=== PATIENT | female | born 1965 | race American Indian/Alaskan Native ===

== ENCOUNTER 2016-11-13 13:34 | Emergency (ER) | payer SELFPAY ==
--- NOTE | 2016-11-13 19:11 | Emergency Department Report ---
- General Chief Complaint: Upper Respiratory Infection Stated Complaint: FLU LIKE SYMPTOMS Time Seen by Provider: 11/13/16 18:21 Source: patient Mode of arrival: Ambulatory Limitations: No Limitations - History of Present Illness Initial Comments: c/o cough and sinus congestion since 2 days. today c/o increasing body aches and lowe grade fever. c/o dry cough. denies any chest pain or SOB MD Complaint: cough -: Gradual Severity: moderate Severity scale (0 -10): 2 Quality: dull Consistency: constant Improves With: nothing Worsens With: deep breaths Associated Symptoms: chills, myalgias, rhinorrhea, nasal congestion, cough Treatments Prior to Arrival: none - Related Data Home Medications Medication Instructions Recorded Confirmed Last Taken Aspirin [Aspirin BABY CHEW TAB] 81 mg PO QWEEK 07/25/14 07/25/14 Unknown Previous Rx's Medication Instructions Recorded Last Taken Type Cyclobenzaprine [Flexeril 10mg] 10 mg PO TID PRN #30 tablet 07/25/14 Unknown Rx HYDROcodone/APAP 10-325 [[place] 1 each PO Q6HR PRN #20 tablet 07/25/14 Unknown Rx 10/325] Hydrochlorothiazide [HCTZ] 12.5 mg PO DAILY #60 capsule 07/25/14 Unknown Rx Ibuprofen [Motrin] 600 mg PO Q8H PRN #60 tablet 07/25/14 Unknown Rx amLODIPine [Norvasc] 5 mg PO DAILY #60 tablet 07/25/14 Unknown Rx Azithromycin [Zithromax Z-CRISTOFER] 0 mg PO DAILY #1 pack 11/13/16 Unknown Rx Cetirizine HCl [ZyrTEC] 10 mg PO DAILY #20 tab.chew 11/13/16 Unknown Rx predniSONE [Deltasone] 20 mg PO QDAY #5 tab 11/13/16 Unknown Rx Allergies Allergy/AdvReac Type Severity Reaction Status Date / Time Penicillins Allergy Swelling Verified 07/25/14 09:44 ED Review of Systems ROS: Stated complaint: FLU LIKE SYMPTOMS Other details as noted in HPI Comment: All other systems reviewed and negative Constitutional: denies: chills, fever Eyes: denies: eye pain, eye discharge, vision change ENT: congestion (sinus). denies: ear pain, throat pain Respiratory: cough. denies: shortness of breath, wheezing Cardiovascular: denies: chest pain, palpitations Endocrine: no symptoms reported Gastrointestinal: denies: abdominal pain, nausea, diarrhea Genitourinary: denies: urgency, dysuria, discharge Musculoskeletal: denies: back pain, joint swelling, arthralgia Skin: denies: rash, lesions Neurological: denies: headache, weakness, paresthesias Psychiatric: denies: anxiety, depression Hematological/Lymphatic: denies: easy bleeding, easy bruising ED Past Medical Hx - Past Medical History Hx Hypertension: Yes - Surgical History Hx Cholecystectomy: Yes Additional Surgical History: C section - Social History Smoking Status: Current Some Day Smoker Substance Use Type: None - Medications Home Medications: Home Medications Medication Instructions Recorded Confirmed Last Taken Type Aspirin [Aspirin BABY CHEW TAB] 81 mg PO QWEEK 07/25/14 07/25/14 Unknown History Cyclobenzaprine [Flexeril 10mg] 10 mg PO TID PRN #30 tablet 07/25/14 Unknown Rx HYDROcodone/APAP 10-325 [[place] 1 each PO Q6HR PRN #20 tablet 07/25/14 Unknown Rx 10/325] Hydrochlorothiazide [HCTZ] 12.5 mg PO DAILY #60 capsule 07/25/14 Unknown Rx Ibuprofen [Motrin] 600 mg PO Q8H PRN #60 tablet 07/25/14 Unknown Rx amLODIPine [Norvasc] 5 mg PO DAILY #60 tablet 07/25/14 Unknown Rx Azithromycin [Zithromax Z-CRISTOFER] 0 mg PO DAILY #1 pack 11/13/16 Unknown Rx Cetirizine HCl [ZyrTEC] 10 mg PO DAILY #20 tab.chew 11/13/16 Unknown Rx predniSONE [Deltasone] 20 mg PO QDAY #5 tab 11/13/16 Unknown Rx ED Physical Exam - General Limitations: No Limitations General appearance: alert, in no apparent distress - Head Head exam: Present: atraumatic, normocephalic, other (bilateral frontal sinus tenderness) - Eye Eye exam: Present: normal appearance - ENT ENT exam: Present: mucous membranes moist, other (pharyngeal erythema) - Neck Neck exam: Present: normal inspection - Respiratory Respiratory exam: Present: normal lung sounds bilaterally. Absent: respiratory distress, wheezes, rales, rhonchi - Cardiovascular Cardiovascular Exam: Present: regular rate, normal rhythm. Absent: systolic murmur, diastolic murmur, rubs, gallop - GI/Abdominal GI/Abdominal exam: Present: soft, normal bowel sounds - Extremities Exam Extremities exam: Present: normal inspection - Back Exam Back exam: Present: normal inspection - Neurological Exam Neurological exam: Present: alert, oriented X3 - Psychiatric Psychiatric exam: Present: normal affect, normal mood - Skin Skin exam: Present: warm, dry, intact, normal color. Absent: rash ED Course Vital Signs 11/13/16 14:24 Temperature 98 F Pulse Rate 92 H Respiratory 20 Rate Blood Pressure 160/97 O2 Sat by Pulse 98 Oximetry Critical care attestation.: If time is entered above; I have spent that time in minutes in the direct care of this critically ill patient, excluding procedure time. ED Disposition Clinical Impression: Acute frontal sinusitis Qualifiers: Recurrence: non-recurrent Qualified Code(s): J01.10 - Acute frontal sinusitis, unspecified Acute bronchitis Qualifiers: Bronchitis organism: unspecified organism Qualified Code(s): J20.9 - Acute bronchitis, unspecified Disposition: DISCHARGED TO HOME OR SELFCARE Is pt being admited?: No Does the pt Need Aspirin: No Condition: Good Instructions: Sinusitis (ED), Acute Bronchitis (ED) Prescriptions: Azithromycin [Zithromax Z-CRISTOFER] 0 mg PO DAILY #1 pack Cetirizine HCl [ZyrTEC] 10 mg PO DAILY #20 tab.chew predniSONE [Deltasone] 20 mg PO QDAY #5 tab Referrals: PRIMARY CARE, [Primary Care Provider] - 3-5 Days Forms: Work/School Release Form(ED)
[2016-11-13 20:58] VITALS: BP 156/88
== END 2016-11-13 19:30 | disposition home or self-care (01) ==
LOC: ED 13:34
DX: J01.10 Acute frontal sinusitis, unspecified (principal); J20.9 Acute bronchitis, unspecified; I10 Essential (primary) hypertension; F17.200 Nicotine dependence, unspecified, uncomplicated
CPT/HCPCS: 87400; 99282

== ENCOUNTER 2017-03-28 09:01 | Emergency (ER) | payer SELFPAY ==
[2017-03-28 09:47] LABS: Basophils % (Auto) 0.4 % (0.0-1.8); Eosinophils % (Auto) 2.9 % (0.0-4.3); Hematocrit 34.9 % (30.3-42.9); Hemoglobin 10.8 gm/dl (10.1-14.3); Mean Corpuscular HGB Conc 31 % (30-34); Platelet Count 208 K/mm3 (140-440); Red Blood Count 5.59 M/mm3 (3.65-5.03); Red Cell Distribution Width 19.7 % (13.2-15.2)
[2017-03-28 09:51] LABS: Mean Corpuscular Hemoglobin 19 pg (28-32); Mean Corpuscular Volume 62 fl (79-97)
[2017-03-28 10:00] LABS: Anion Gap 17 mmol/L; BUN/Creatinine Ratio 11.11; Blood Urea Nitrogen 10 mg/dL (7-17); Calcium 8.7 mg/dL (8.4-10.2); Carbon Dioxide 24 mmol/L (22-30); Chloride 106.3 mmol/L (98-107); Glucose 86 mg/dL (65-100); Potassium 3.8 mmol/L (3.6-5.0); Sodium 143 mmol/L (137-145)
--- NOTE | 2017-03-28 10:27 | XRay Report ---
Chest 2 views: History: Shortness of breath. Findings: Normal cardiomediastinal silhouette. Trachea is midline. No consolidation, pneumothorax or pleural effusion. Impression: No acute cardiopulmonary findings.
--- NOTE | 2017-03-28 12:17 | Emergency Department Report ---
ED Chest Pain HPI - General Chief Complaint: Dyspnea/Respdistress Stated Complaint: RADIATING PAIN Time Seen by Provider: 03/28/17 11:48 Source: patient Mode of arrival: Ambulatory Limitations: No Limitations - History of Present Illness Initial Comments: patient stated that she will have episodes of left sided chest pain that continue for seconds and it go away. patient stated that she is doing a lot of lifting at work. Complaint: chest pain -: Gradual, week(s) Onset: during exertion Pain Location: left chest Pain Radiation: none Severity scale (0 -10): 5 Quality: squeezing Improves With: nothing Worsens With: exertion, inspiration re: denies: nausea Other Symptoms: denies: fever, rash - Related Data Home Medications Medication Instructions Recorded Confirmed Last Taken Aspirin [Aspirin BABY CHEW TAB] 81 mg PO QWEEK 07/25/14 07/25/14 Unknown Previous Rx's Medication Instructions Recorded Last Taken Type Cyclobenzaprine [Flexeril 10mg] 10 mg PO TID PRN #30 tablet 07/25/14 Unknown Rx HYDROcodone/APAP 10-325 [[place] 1 each PO Q6HR PRN #20 tablet 07/25/14 Unknown Rx 10/325] Hydrochlorothiazide [HCTZ] 12.5 mg PO DAILY #60 capsule 07/25/14 Unknown Rx Ibuprofen [Motrin] 600 mg PO Q8H PRN #60 tablet 07/25/14 Unknown Rx amLODIPine [Norvasc] 5 mg PO DAILY #60 tablet 07/25/14 Unknown Rx Azithromycin [Zithromax Z-CRISTOFER] 0 mg PO DAILY #1 pack 11/13/16 Unknown Rx Cetirizine HCl [ZyrTEC] 10 mg PO DAILY #20 tab.chew 11/13/16 Unknown Rx predniSONE [Deltasone] 20 mg PO QDAY #5 tab 11/13/16 Unknown Rx Furosemide [Lasix] 20 mg PO QDAY #10 tablet 03/28/17 Unknown Rx traMADol [Ultram] 50 mg PO Q6HR PRN #14 tablet 03/28/17 Unknown Rx Allergies Allergy/AdvReac Type Severity Reaction Status Date / Time Penicillins Allergy Swelling Verified 03/28/17 09:06 Heart Score - HEART Score History: Moderately suspicious EKG: Non-specific Age: 45-65 Risk factors: 1-2 risk factors Troponin: < normal limit HEART Score: 4 - Critical Actions Critical Actions: 4-6 pts:12-16.6% risk of adverse cardiac event. Should be admitted ED Review of Systems ROS: Stated complaint: RADIATING PAIN Other details as noted in HPI Comment: All other systems reviewed and negative Constitutional: denies: chills, fever Respiratory: cough, SOB with exertion. denies: SOB at rest, wheezing Cardiovascular: chest pain, dyspnea on exertion, edema. denies: palpitations Gastrointestinal: denies: abdominal pain, nausea Neurological: denies: headache ED Past Medical Hx - Past Medical History Hx Hypertension: Yes Hx Diabetes: Yes (BORDERLINE) - Surgical History Hx Cholecystectomy: Yes Additional Surgical History: C section. CYST REMOVED LEFT HAND - Social History Smoking Status: Former Smoker Substance Use Type: Prescribed - Medications Home Medications: Home Medications Medication Instructions Recorded Confirmed Last Taken Type Aspirin [Aspirin BABY CHEW TAB] 81 mg PO QWEEK 07/25/14 07/25/14 Unknown History Cyclobenzaprine [Flexeril 10mg] 10 mg PO TID PRN #30 tablet 07/25/14 Unknown Rx HYDROcodone/APAP 10-325 [[place] 1 each PO Q6HR PRN #20 tablet 07/25/14 Unknown Rx 10/325] Hydrochlorothiazide [HCTZ] 12.5 mg PO DAILY #60 capsule 07/25/14 Unknown Rx Ibuprofen [Motrin] 600 mg PO Q8H PRN #60 tablet 07/25/14 Unknown Rx amLODIPine [Norvasc] 5 mg PO DAILY #60 tablet 07/25/14 Unknown Rx Azithromycin [Zithromax Z-CRISTOFER] 0 mg PO DAILY #1 pack 11/13/16 Unknown Rx Cetirizine HCl [ZyrTEC] 10 mg PO DAILY #20 tab.chew 11/13/16 Unknown Rx predniSONE [Deltasone] 20 mg PO QDAY #5 tab 11/13/16 Unknown Rx Furosemide [Lasix] 20 mg PO QDAY #10 tablet 03/28/17 Unknown Rx traMADol [Ultram] 50 mg PO Q6HR PRN #14 tablet 03/28/17 Unknown Rx ED Physical Exam - General Limitations: No Limitations General appearance: alert - Head Head exam: Present: atraumatic - Neck Neck exam: Present: normal inspection, full ROM - Respiratory Respiratory exam: Present: normal lung sounds bilaterally, chest wall tenderness (LEFT UPPER CHEST). Absent: respiratory distress, wheezes, rales, rhonchi - Cardiovascular Cardiovascular Exam: Present: regular rate, normal heart sounds - GI/Abdominal GI/Abdominal exam: Present: soft. Absent: distended - Extremities Exam Extremities exam: Present: pedal edema - Neurological Exam Neurological exam: Present: alert, oriented X3, CN II-XII intact ED Course Vital Signs 03/28/17 03/28/17 09:07 11:44 Temperature 98.5 F Pulse Rate 82 71 Respiratory 19 19 Rate Blood Pressure 142/80 Blood Pressure 136/68 [Right] O2 Sat by Pulse 100 100 Oximetry - Reevaluation(s) Reevaluation #1: 03/28/17 12:17 PATIENT STATED THAT SHE DOESN'T HAVE ANY PAIN SINCE SHE GOT TO THE ER . PAIN ONLY HAPPENED AT WORK. ED Medical Decision Making - Lab Data Result diagrams: 03/28/17 09:34 03/28/17 09:31 Critical care attestation.: If time is entered above; I have spent that time in minutes in the direct care of this critically ill patient, excluding procedure time. ED Disposition Clinical Impression: Chest pain, atypical, Costochondritis Disposition: DC-01 TO HOME OR SELFCARE Is pt being admited?: No Does the pt Need Aspirin: No Condition: Stable Instructions: Chest Pain (ED) Prescriptions: Furosemide [Lasix] 20 mg PO QDAY #10 tablet traMADol [Ultram] 50 mg PO Q6HR PRN #14 tablet PRN Reason: Pain Forms: Work/School Release Form(ED)
[2017-03-28 12:28] VITALS: BP 152/79
== END 2017-03-28 12:30 | disposition home or self-care (01) ==
LOC: ED 09:01
DX: M94.0 Chondrocostal junction syndrome [Tietze] (principal); R07.89 Other chest pain; I10 Essential (primary) hypertension; E11.9 Type 2 diabetes mellitus without complications; Z87.891 Personal history of nicotine dependence; Z79.82 Long term (current) use of aspirin; Z88.0 Allergy status to penicillin
CPT/HCPCS: 36415; 71020; 80048; 83880; 84484; 85025; 93005; 93010

== ENCOUNTER 2017-07-14 14:50 | Emergency (ER) | payer SELFPAY ==
[2017-07-14 16:17] VITALS: BP 144/83
[2017-07-14] MEDS ORDERED: BOOSTRIX IM ONE (18:53)
[2017-07-14] MEDS ORDERED: MOTRIN PO ONE (18:54)
[2017-07-14] MEDS ORDERED: CLEOCIN PO ONE (18:54)
[2017-07-14] MEDS ORDERED: TRIPLE ANTIBIOTIC TP ONE (18:54)
--- NOTE | 2017-07-14 19:18 | Emergency Department Report ---
ED General Adult HPI - General Chief complaint: Skin/Abscess/Foreign Body Stated complaint: BOIL UNDEER RIGHT ARM Time Seen by Provider: 07/14/17 18:39 Source: patient Mode of arrival: Ambulatory Limitations: No Limitations - History of Present Illness Initial comments: PT c/o bump to R axilla x 4 days. PT states the bump is getting bigger and she has to put a dressing on because it has been draining. PT states she felt feverish yesterday and her mother gave her some Motrin. PT states she also has a sore throat. PT states she is about to be out of her bp medication and metformin. MD Complaint: boil -: Gradual Location: right, upper extremity Radiation: non-radiation Severity scale (0 -10): 8 Quality: sharp Consistency: constant Worsens with: movement Associated Symptoms: fever/chills. denies: loss of appetite, nausea/vomiting Treatments Prior to Arrival: none, NSAID (yesterday ) - Related Data Home Medications Medication Instructions Recorded Confirmed Last Taken Aspirin [Aspirin BABY CHEW TAB] 81 mg PO QWEEK 07/25/14 07/25/14 Unknown Previous Rx's Medication Instructions Recorded Last Taken Type Ibuprofen [Motrin] 600 mg PO Q8H PRN #60 tablet 07/25/14 Unknown Rx Furosemide [Lasix] 20 mg PO QDAY #10 tablet 03/28/17 Unknown Rx Acetaminophen/Codeine [Tylenol #3] 1 tab PO Q6H PRN #8 tab 07/14/17 Unknown Rx Clindamycin [Clindamycin CAP] 300 mg PO Q8H #30 cap 07/14/17 Unknown Rx Hydrochlorothiazide [HCTZ] 12.5 mg PO DAILY #60 capsule 07/14/17 Unknown Rx amLODIPine [Norvasc] 5 mg PO DAILY #60 tablet 07/14/17 Unknown Rx metFORMIN [Glucophage] 500 mg PO QDAY #30 tab 07/14/17 Unknown Rx Allergies Allergy/AdvReac Type Severity Reaction Status Date / Time Penicillins Allergy Swelling Verified 03/28/17 09:06 ED Review of Systems ROS: Stated complaint: BOIL UNDEER RIGHT ARM Other details as noted in HPI Comment: All other systems reviewed and negative Constitutional: fever (subjective ) ENT: throat pain (sore throat ) Respiratory: denies: cough Gastrointestinal: denies: abdominal pain, nausea, vomiting Musculoskeletal: denies: back pain Skin: other (wound under R arm ) Neurological: denies: weakness ED Past Medical Hx - Past Medical History Previous Medical History?: Yes Hx Hypertension: Yes Hx Diabetes: Yes (BORDERLINE) - Surgical History Past Surgical History?: Yes Hx Cholecystectomy: Yes Additional Surgical History: C section. CYST REMOVED LEFT HAND - Social History Smoking Status: Current Some Day Smoker Substance Use Type: Prescribed - Medications Home Medications: Home Medications Medication Instructions Recorded Confirmed Last Taken Type Aspirin [Aspirin BABY CHEW TAB] 81 mg PO QWEEK 07/25/14 07/25/14 Unknown History Ibuprofen [Motrin] 600 mg PO Q8H PRN #60 tablet 07/25/14 Unknown Rx Furosemide [Lasix] 20 mg PO QDAY #10 tablet 03/28/17 Unknown Rx Acetaminophen/Codeine [Tylenol #3] 1 tab PO Q6H PRN #8 tab 07/14/17 Unknown Rx Clindamycin [Clindamycin CAP] 300 mg PO Q8H #30 cap 07/14/17 Unknown Rx Hydrochlorothiazide [HCTZ] 12.5 mg PO DAILY #60 capsule 07/14/17 Unknown Rx amLODIPine [Norvasc] 5 mg PO DAILY #60 tablet 07/14/17 Unknown Rx metFORMIN [Glucophage] 500 mg PO QDAY #30 tab 07/14/17 Unknown Rx ED Physical Exam - General Limitations: No Limitations General appearance: alert, in no apparent distress, obese - Head Head exam: Present: atraumatic, normocephalic, normal inspection - Eye Eye exam: Present: normal appearance. Absent: conjunctival injection, nystagmus - ENT ENT exam: Present: normal exam, normal orophraynx, mucous membranes moist, TM's normal bilaterally, normal external ear exam - Expanded ENT Exam Expanded Mouth exam: Absent: drooling, trismus Teeth exam: Present: dental caries. Absent: gingival enlargement Throat exam: Positive: normal inspection. Negative: tonsillar erythema, tonsillomegaly, tonsillar exudate, R peritonsillar mass, L peritonsillar mass - Neck Neck exam: Present: normal inspection, full ROM. Absent: tenderness, lymphadenopathy - Respiratory Respiratory exam: Present: normal lung sounds bilaterally. Absent: respiratory distress, wheezes, rales, rhonchi, stridor, chest wall tenderness - Cardiovascular Cardiovascular Exam: Present: regular rate, normal rhythm, normal heart sounds - GI/Abdominal GI/Abdominal exam: Present: soft. Absent: tenderness - Extremities Exam Extremities exam: Present: full ROM, tenderness, other (R axilla with 2 cm draining abscess, no surrounding cellulitis noted ) - Back Exam Back exam: Present: normal inspection, full ROM. Absent: tenderness, CVA tenderness (R), CVA tenderness (L) - Neurological Exam Neurological exam: Present: alert, oriented X3, normal gait - Expanded Neurological Exam Expanded Patient oriented to: Present: person, place, time Speech: Present: fluid speech Best Eye Response ([place]): (4) open spontaneously Best Motor Response ([place]): (6) obeys commands Best Verbal Response ([place]): (5) oriented [place] Total: 15 - Psychiatric Psychiatric exam: Present: normal affect, normal mood - Skin Skin exam: Present: warm, dry, other (abscess ) ED Course Vital Signs 07/14/17 16:13 Temperature 98.3 F Pulse Rate 73 Respiratory 18 Rate Blood Pressure 144/83 O2 Sat by Pulse 100 Oximetry - Reevaluation(s) Reevaluation #1: 07/14/17 19:33 Abscess spontaneously drained. No I and D performed in ED. PT given home care instructions and strict return precautions. PT verbalizes understanding - Pulse Oximetry Interpretation Digit-Finger Initial Pulse Oximetry Readin Actions Taken: none ED Medical Decision Making - Differential Diagnosis pharyngitis, abscess, cellulitis Critical Care Time: No Critical care attestation.: If time is entered above; I have spent that time in minutes in the direct care of this critically ill patient, excluding procedure time. ED Disposition Clinical Impression: Abscess, Need for Tdap vaccination HTN (hypertension) Qualifiers: Hypertension type: essential hypertension Qualified Code(s): I10 - Essential ( primary) hypertension Pharyngitis Qualifiers: Pharyngitis/tonsillitis etiology: unspecified etiology Qualified Code(s): J02.9 - Acute pharyngitis, unspecified Disposition: - TO HOME OR SELFCARE Is pt being admited?: No Does the pt Need Aspirin: No Condition: Stable Instructions: Hypertension (ED), Abscess (ED) Additional Instructions: Warm compresses to R axilla at least four times a day apply a think layer of antibiotic ointment Return in two days for wound recheck Return to the ED sooner if you develop fevers, nausea, vomiting, increase in under arm swelling or concerns Do not drive or drink alcohol after taking Tylenol #3 Prescriptions: Acetaminophen/Codeine [Tylenol #3] 1 tab PO Q6H PRN #8 tab PRN Reason: Pain , Severe (7-10) amLODIPine [Norvasc] 5 mg PO DAILY #60 tablet Clindamycin [Clindamycin CAP] 300 mg PO Q8H #30 cap Hydrochlorothiazide [HCTZ] 12.5 mg PO DAILY #60 capsule metFORMIN [Glucophage] 500 mg PO QDAY #30 tab Referrals: PRIMARY CARE, [Primary Care Provider] - 3-5 Days Time of Disposition: 19:41
== END 2017-07-14 20:32 | disposition home or self-care (01) ==
LOC: ED 14:50
DX: L02.411 Cutaneous abscess of right axilla (principal); I10 Essential (primary) hypertension; J02.9 Acute pharyngitis, unspecified; E11.9 Type 2 diabetes mellitus without complications; F17.210 Nicotine dependence, cigarettes, uncomplicated; Z88.0 Allergy status to penicillin; Z79.82 Long term (current) use of aspirin
CPT/HCPCS: 82962; 90471; 90715; 99283; A6250

== ENCOUNTER 2019-07-17 09:00 | Outpatient (CLI) | payer MEDICAID, OTHER ==
[2019-07-17 12:16] LABS: Basophils % (Auto) 0.5 % (0.0-1.8); Eosinophils # (Auto) 0.2 K/mm3 (0.0-0.4); Hemoglobin 11.3 gm/dl (10.1-14.3); Lymphocytes # (Auto) 2.1 K/mm3 (1.2-5.4); Lymphocytes % (Auto) 27.3 % (13.4-35.0); Mean Corpuscular HGB Conc 31 % (30-34); Monocytes # (Auto) 0.5 K/mm3 (0.0-0.8); Monocytes % (Auto) 5.8 % (0.0-7.3); Platelet Count 243 K/mm3 (140-440); Red Blood Count 5.48 M/mm3 (3.65-5.03); Red Cell Distribution Width 18.5 % (13.2-15.2)
[2019-07-17 12:17] LABS: Mean Corpuscular Volume 66 fl (79-97)
[2019-07-17 12:41] LABS: Alanine Aminotransferase 12 units/L (7-56); Albumin 4.3 g/dL (3.9-5); BUN/Creatinine Ratio 16; Blood Urea Nitrogen 13 mg/dL (7-17); Calcium 9.5 mg/dL (8.4-10.2); Chol/HDL Ratio 3.03 %; HDL Cholesterol 57 mg/dL (40-59); Hemolysis Index 4; LDL Cholesterol,Direct 109 mg/dL (50-130)
[2019-07-21 11:23] LABS: Vitamin D, 25-OH, D2 <4 ng/mL
== END 2019-07-17 09:01 | disposition home or self-care (01) ==
LOC: LAB 09:00
PROVIDERS: ATTEND Internal Medicine
DX: Z13.220 Encounter for screening for lipoid disorders (principal); Z13.29 Encounter for screening for other suspected endocrine disorder; Z00.01 Encounter for general adult medical examination with abnormal findings; E11.65 Type 2 diabetes mellitus with hyperglycemia; E78.5 Hyperlipidemia, unspecified; I10 Essential (primary) hypertension; Z90.49 Acquired absence of other specified parts of digestive tract; F17.200 Nicotine dependence, unspecified, uncomplicated
CPT/HCPCS: 36415; 80053; 80061; 82306; 82607; 83036; 84443; 85025

== ENCOUNTER 2019-12-01 18:43 | Emergency (ER) | payer MEDICAID ==
--- NOTE | 2019-12-01 22:03 | Emergency Department Report ---
HPI - General Chief Complaint: Fever Time Seen by Provider: 12/01/19 22:02 - HPI HPI: This is a 54 female came to the emergency room report fever chills coughing x3 days. She says she took Tylenol at 4 PM. She denies any chest pain but reports some shortness of breath with coughing. Denies any diarrhea, nausea or vomiting. Denies any nasal congestion or runny nose. Patient has a history of hypertension and diabetes. Generalized aching at 4 out of 10. Pain is constant. Denies being around anyone with similar symptoms. Patient reports that she has been at home and no known exposure to coronavirus. ED Past Medical Hx - Past Medical History Previous Medical History?: Yes Hx Hypertension: Yes Hx Diabetes: Yes (BORDERLINE) - Surgical History Past Surgical History?: Yes Hx Cholecystectomy: Yes Additional Surgical History: C section. CYST REMOVED LEFT HAND - Family History Family history: hypertension - Social History Smoking Status: Current Some Day Smoker Substance Use Type: Prescribed - Medications Home Medications: Home Medications Medication Instructions Recorded Confirmed Last Taken Type Aspirin [Aspirin BABY CHEW TAB] 81 mg PO QWEEK 07/25/14 07/25/14 Unknown History Ibuprofen [Motrin] 600 mg PO Q8H PRN #60 tablet 07/25/14 Unknown Rx Furosemide [Lasix] 20 mg PO QDAY #10 tablet 03/28/17 Unknown Rx Acetaminophen/Codeine [Tylenol #3] 1 tab PO Q6H PRN #8 tab 07/14/17 Unknown Rx Clindamycin [Clindamycin CAP] 300 mg PO Q8H #30 cap 07/14/17 Unknown Rx amLODIPine 5 mg PO DAILY #60 tablet 07/14/17 Unknown Rx hydroCHLOROthiazide [HCTZ] 12.5 mg PO DAILY #60 capsule 07/14/17 Unknown Rx metFORMIN [Glucophage] 500 mg PO QDAY #30 tab 07/14/17 Unknown Rx Acetaminophen [Acetaminophen TAB] 500 mg PO Q6HR PRN #12 tablet 12/02/19 Unknown Rx Albuterol INH(or & Nicu Only) 2 puff IH Q6H PRN #1 inhalation 12/02/19 Unknown Rx [ProAir HFA Inhaler] Azithromycin [Zithromax Z-DONTA] 250 mg PO DAILY 5 Days #1 pkg 12/02/19 Unknown Rx Cetirizine HCl [ZyrTEC] 10 mg PO QAM 14 Days #14 capsule 12/02/19 Unknown Rx ED Review of Systems ROS: Stated complaint: FEVER/CHILLS/COUGHING Other details as noted in HPI Constitutional: chills, fever Eyes: denies: eye discharge ENT: denies: ear pain, throat pain, congestion Respiratory: cough, shortness of breath, SOB with exertion. denies: SOB at rest, stridor, wheezing Cardiovascular: denies: chest pain, palpitations, edema, syncope Gastrointestinal: denies: abdominal pain, nausea, vomiting Genitourinary: denies: dysuria, hematuria Musculoskeletal: myalgia. denies: back pain, joint swelling, arthralgia Skin: denies: rash Neurological: denies: headache, numbness, paresthesias, confusion, abnormal gait, vertigo Physical Exam - Physical Exam Vital Signs: Vital Signs 12/01/19 19:29 Temperature 100.6 F H Pulse Rate 89 Respiratory 20 Rate Blood Pressure 134/76 O2 Sat by Pulse 98 Oximetry Vital Signs 12/01/19 12/01/19 12/02/19 19:29 23:00 01:10 Temperature 100.6 F H 98.6 F Pulse Rate 89 85 Respiratory 20 20 18 Rate Blood Pressure 134/76 154/82 O2 Sat by Pulse 98 98 Oximetry General: This is a 54-year-old female well-nourished well-developed in no acute distress. She is nontoxic in appearance Physical Exam: Head: Normocephalic atraumatic Ears:BIateral TM congested without erythema and loss of bony landmarks. Marlon EAC with normal exam. No mastoid bone tenderness. Mouth: Moist, no pharyngeal erythema or exudate . UVULA midline and oral airways patent. No peritonsillar abscess Neck: Nontender to palpate, supple, normal range of motion. No adenopathy. No c- spine tenderness. Nose: Bilateral nasal mucosa congested with clear drainage. Maxillary and frontal sinuses non-tender to palpate. Eyes: Bilateral Sclerae and conjunctiva without injection. Bilateral pupils equal and reactive to light. Bilateral lids are normal. Normal accommodation.BEOMI Lungs: Clear to auscultate bilaterally, no rhonchi wheezes or rales. Normal work of breathing and no chest wall tenderness. Dry cough CV: S1, S2. Regular rate and rhythm negative murmur. Capillary refill is less than 3 seconds Abdomen: Nontender to palpation in all quadrants: No guarding or rebound tenderness. Positive bowel sounds in all quadrants Extremity: No clubbing, cyanosis or edema. +2 pulses in all extremities and no neurovascular compromise Skin: Clean dry and intact, no rashes or lesions Psych: Normal mood and behavior ED Course Vital Signs 12/01/19 19:29 Temperature 100.6 F H Pulse Rate 89 Respiratory 20 Rate Blood Pressure 134/76 O2 Sat by Pulse 98 Oximetry Vital Signs 12/01/19 12/01/19 12/02/19 19:29 23:00 01:10 Temperature 100.6 F H 98.6 F Pulse Rate 89 85 Respiratory 20 20 18 Rate Blood Pressure 134/76 154/82 O2 Sat by Pulse 98 98 Oximetry - Reevaluation(s) Reevaluation #1: 12/02/19 01:05 Patient is stable. She received Tylenol 975 mg for low-grade temp of 100.6. Chest x-ray shows pneumonia. She is stable in no acute distress. Patient also received DuoNeb x2 nebulizer treatment and she says she is feeling a lot better. Nontoxic in appearance. Patient is suspect coven Reevaluation #2: 12/02/19 01:36 Patient stable in no acute distress. She received Zithromax 500 mg p.o. in emergency room. Her vital signs are stable and she is afebrile. Blood sugar and chemistry is 123. Patient is a diabetic and she is on metformin once a day. She does have a primary care physician to follow-up with. PUI form filled out and sent to health department and scanned in on patient's chart. Patient edu cated on [facility] id. She reports she is feeling better at present ED Medical Decision Making - Lab Data Result diagrams: 12/02/19 00:03 12/02/19 00:03 Lab Results 12/01/19 12/02/19 12/02/19 Range/Units 23:55 00:03 00:03 WBC 7.5 (4.5-11.0) K/mm3 RBC 5.53 H (3.65-5.03) M/mm3 Hgb 11.1 (10.1-14.3) gm/dl Hct 35.4 (30.3-42.9) % MCV 64 L (79-97) fl MCH 20 L (28-32) pg MCHC 32 (30-34) % RDW 19.0 H (13.2-15.2) % Plt Count 223 (140-440) K/mm3 Lymph % (Auto) 18.6 (13.4-35.0) % [place] % (Auto) 6.8 (0.0-7.3) % Eos % (Auto) 0.4 (0.0-4.3) % Baso % (Auto) 0.5 (0.0-1.8) % Lymph # 1.4 (1.2-5.4) K/mm3 [place] # 0.5 (0.0-0.8) K/mm3 Eos # 0.0 (0.0-0.4) K/mm3 Baso # 0.0 (0.0-0.1) K/mm3 Seg Neutrophils % 73.7 H (40.0-70.0) % Seg Neutrophils # 5.5 (1.8-7.7) K/mm3 Sodium 142 (137-145) mmol/L Potassium 3.8 (3.6-5.0) mmol/L Chloride 104.3 (98-107) mmol/L Carbon Dioxide 26 (22-30) mmol/L Anion Gap 16 mmol/L BUN 9 (7-17) mg/dL Creatinine 1.0 (0.7-1.2) mg/dL Estimated GFR > 60 ml/min BUN/Creatinine Ratio 9 % Glucose 123 H (65-100) mg/dL Calcium 8.6 (8.4-10.2) mg/dL Total Bilirubin < 0.20 (0.1-1.2) mg/dL AST 13 (5-40) units/L ALT 13 (7-56) units/L Alkaline Phosphatase 86 (35-129) units/L Total Protein 6.2 L (6.3-8.2) g/dL Albumin 4.0 (3.9-5) g/dL Albumin/Globulin Ratio 1.8 % Urine Color (Yellow) Urine Turbidity (Clear) Urine pH (5.0-7.0) Ur Specific [place] (1.003-1.030) Urine Protein (Negative) mg/dL Urine Glucose (UA) (Negative) mg/dL Urine Ketones (Negative) mg/dL Urine Blood (Negative) Urine Nitrite (Negative) Urine Bilirubin (Negative) Urine Urobilinogen (<2.0) mg/dL Ur Leukocyte Esterase (Negative) Urine WBC (Auto) (0.0-6.0) /HPF Urine RBC (Auto) (0.0-6.0) /HPF U Epithel Cells (Auto) (0-13.0) /HPF Influenza A (Rapid) Negative (Negative) Influenza B (Rapid) Negative (Negative) 12/02/19 Range/Units 00:25 WBC (4.5-11.0) K/mm3 RBC (3.65-5.03) M/mm3 Hgb (10.1-14.3) gm/dl Hct (30.3-42.9) % MCV (79-97) fl MCH (28-32) pg MCHC (30-34) % RDW (13.2-15.2) % Plt Count (140-440) K/mm3 Lymph % (Auto) (13.4-35.0) % [place] % (Auto) (0.0-7.3) % Eos % (Auto) (0.0-4.3) % Baso % (Auto) (0.0-1.8) % Lymph # (1.2-5.4) K/mm3 [place] # (0.0-0.8) K/mm3 Eos # (0.0-0.4) K/mm3 Baso # (0.0-0.1) K/mm3 Seg Neutrophils % (40.0-70.0) % Seg Neutrophils # (1.8-7.7) K/mm3 Sodium (137-145) mmol/L Potassium (3.6-5.0) mmol/L Chloride (98-107) mmol/L Carbon Dioxide (22-30) mmol/L Anion Gap mmol/L BUN (7-17) mg/dL Creatinine (0.7-1.2) mg/dL Estimated GFR ml/min BUN/Creatinine Ratio % Glucose (65-100) mg/dL Calcium (8.4-10.2) mg/dL Total Bilirubin (0.1-1.2) mg/dL AST (5-40) units/L ALT (7-56) units/L Alkaline Phosphatase (35-129) units/L Total Protein (6.3-8.2) g/dL Albumin (3.9-5) g/dL Albumin/Globulin Ratio % Urine Color Yellow (Yellow) Urine Turbidity Clear (Clear) Urine pH 6.0 (5.0-7.0) Ur Specific [place] 1.014 (1.003-1.030) Urine Protein <15 mg/dl (Negative) mg/dL Urine Glucose (UA) Neg (Negative) mg/dL Urine Ketones Neg (Negative) mg/dL Urine Blood Neg (Negative) Urine Nitrite Neg (Negative) Urine Bilirubin Neg (Negative) Urine Urobilinogen < 2.0 (<2.0) mg/dL Ur Leukocyte Esterase Neg (Negative) Urine WBC (Auto) < 1.0 (0.0-6.0) /HPF Urine RBC (Auto) < 1.0 (0.0-6.0) /HPF U Epithel Cells (Auto) 2.0 (0-13.0) /HPF Influenza A (Rapid) (Negative) Influenza B (Rapid) (Negative) - Radiology Data Radiology results: report reviewed Chest x-ray two-view dictated by radiologist and report reviewed by myself. Please see below for details Print Report Referring Physician:KOBI HARRISPatient Name:SUGEY PARRAPatient ID:[id number] of :[id number]:FemaleAccession:[id number] Date:2949-93-91Foltbn Status:Finalized Findings [facility] [address] [place] [address] XRay Report Signed Patient: SUGEY PARRA MR#: [id number] : 1965 Acct:[id number] Age/Sex: 54 / F ADM Date: 12/01/19 Loc: ED Attending Dr: Ordering Physician: WANDA ALONSO Date of Service: 12/01/19 Procedure(s): XR chest routine 2V Accession Number(s): [id number] cc: WANDA ALONSO Fluoro Time In Minutes: CHEST 2 VIEWS INDICATION / CLINICAL INFORMATION: Fever, chills and cough for 3 days. COMPARISON: 03/28/17. FINDINGS: SUPPORT DEVICES: None. HEART / MEDIASTINUM: The heart size and pulmonary vasculature are normal. LUNGS / PLEURA: There is minimal groundglass opacity in the left mid lung laterally on the PA view. The lungs are otherwise clear. There is no evidence of effusion or adenopathy. No pneumothorax. ADDITIONAL FINDINGS: No significant additional findings. IMPRESSION: Minimal groundglass opacity in the left mid lung laterally is likely inflammatory. Atypical causes of pneumonia, including viral pneumonia can have this appearance. Signer Name: Buck Quiñones MD Signed: 12/01/2019 10:54 PM Workstation Name: [id number] Transcribed By: RT Dictated By: Buck Quiñones MD Electronically Authenticated By: Buck Quiñones MD Signed Date/Time: 12/01/192253 DD/ 50 TD/TT: - Medical Decision Making This is a 54-year-old female came here with cough and fever and chills. Patient found to have atypical pneumonia suspect viral to left lung. CBC and CMP is stable. Influenza negative. Urinalysis is with normal findings. Patient given nebulizer treatment in ER and also started on azithromycin. She received Tylenol in emergency room for fever and she her vital signs are now stable and she is afebrile. Patient says she is feeling a lot better. Patient discharged home in stable condition with prescription for Z-Donta, Tylenol, albuterol and Zyrtec. She is aware that she needs to follow-up with her primary care physi yeny in 2 days or return to the emergency room if her symptoms worsens. - Differential Diagnosis Viral vs bacterial PNA, URI with cough and congestion, sinusitis, allergies Critical care attestation.: If time is entered above; I have spent that time in minutes in the direct care of this critically ill patient, excluding procedure time. ED Disposition Clinical Impression: Acute viral syndrome, URI with cough and congestion Pneumonia Qualifiers: Pneumonia type: due to unspecified organism Laterality: left Lung location: unspecified part of lung Qualified Code(s): J18.9 - Pneumonia, unspecified organism Fever Qualifiers: Fever type: unspecified Qualified Code(s): R50.9 - Fever, unspecified Disposition: DC-01 TO HOME OR SELFCARE Is pt being admited?: No Does the pt Need Aspirin: No Condition: Stable Instructions: Fever in Adults (ED), Community-acquired Pneumonia (ED), Viral Syndrome (ED) Additional Instructions: Please take medication as prescribed You are suspect COVID 19 patient so you will need to be in quarantine for 14 days nd this time the health department should contact you and they will manage you from this point. There is a possibility that they will test you. If your symptoms worsen, return to the emergency room Please call your primary care physician on Wednesday to let them know that you are in the emergency room and diagnosis Read discharge instruction diagnosis and paperwork given to you. Please see information given on covid-19 in your discharge instruction paperwork from [facility] and [facility] Prescriptions: Acetaminophen [Acetaminophen TAB] 500 mg PO Q6HR PRN #12 tablet PRN Reason: pain and/or fever Albuterol INH(or & Nicu Only) [ProAir HFA Inhaler] 2 puff IH Q6H PRN #1 inhalation PRN Reason: Shortness Of Breath Azithromycin [Zithromax Z-DONTA] 250 mg PO DAILY 5 Days #1 pkg Cetirizine HCl [ZyrTEC] 10 mg PO QAM 14 Days #14 capsule Referrals: PRIMARY CARE, [Primary Care Provider] - 12/04/19
[2019-12-01] MEDS ORDERED: ACETAMINOPHEN 325 MG TAB PO ONE (22:06)
[2019-12-01] MEDS ORDERED: IPRATROPIUM/ALBUTEROL SULFATE 3 ML AMPUL.NEB IH ONE (22:07)
--- NOTE | 2019-12-01 22:59 | XRay Report ---
CHEST 2 VIEWS INDICATION / CLINICAL INFORMATION: Fever, chills and cough for 3 days. COMPARISON: 03/28/17. FINDINGS: SUPPORT DEVICES: None. HEART / MEDIASTINUM: The heart size and pulmonary vasculature are normal. LUNGS / PLEURA: There is minimal groundglass opacity in the left mid lung laterally on the PA view. T he lungs are otherwise clear. There is no evidence of effusion or adenopathy. No pneumothorax. ADDITIONAL FINDINGS: No significant additional findings. IMPRESSION: Minimal groundglass opacity in the left mid lung laterally is likely inflammatory. Atypic al causes of pneumonia, including viral pneumonia can have this appearance. Signer Name: Buck Quiñones MD Signed: 12/01/2019 10:54 PM Workstation Name: [id number]
[2019-12-02 00:20] LABS: Basophils % (Auto) 0.5 % (0.0-1.8); Eosinophils % (Auto) 0.4 % (0.0-4.3); Hematocrit 35.4 % (30.3-42.9); Hemoglobin 11.1 gm/dl (10.1-14.3); Lymphocytes # (Auto) 1.4 K/mm3 (1.2-5.4); Lymphocytes % (Auto) 18.6 % (13.4-35.0); Mean Corpuscular HGB Conc 32 % (30-34); Monocytes # (Auto) 0.5 K/mm3 (0.0-0.8); Monocytes % (Auto) 6.8 % (0.0-7.3); Platelet Count 223 K/mm3 (140-440); Red Blood Count 5.53 M/mm3 (3.65-5.03)
[2019-12-02 00:22] LABS: Mean Corpuscular Volume 64 fl (79-97)
[2019-12-02 00:45] LABS: Alanine Aminotransferase 13 units/L (7-56); BUN/Creatinine Ratio 9; Blood Urea Nitrogen 9 mg/dL (7-17); Calcium 8.6 mg/dL (8.4-10.2); Hemolysis Index 1
[2019-12-02 00:58] LABS: Bilirubin,Urine NEG (Negative); Blood,Urine NEG (Negative); Color,Urine Yellow (Yellow); Protein,Urine <15 mg/dL mg/dL (Negative); RBC,Urine < 1.0 /HPF (0.0-6.0); Urobilinogen,Urine < 2.0 mg/dL (<2.0); WBC,Urine < 1.0 /HPF (0.0-6.0)
[2019-12-02] MEDS ORDERED: AZITHROMYCIN 250 MG TAB PO ONE (01:07)
[2019-12-02 01:15] VITALS: BP 154/82
== END 2019-12-02 01:52 | disposition home or self-care (01) ==
LOC: ED 18:43
DX: B34.9 Viral infection, unspecified (principal); J18.9 Pneumonia, unspecified organism; J06.9 Acute upper respiratory infection, unspecified; I10 Essential (primary) hypertension; Z90.49 Acquired absence of other specified parts of digestive tract; F17.200 Nicotine dependence, unspecified, uncomplicated; Z79.82 Long term (current) use of aspirin; Z79.899 Other long term (current) drug therapy
CPT/HCPCS: 36415; 71046; 80053; 81001; 85025; 87400